=== PATIENT | female | born 1990 | race Caucasian/White ===

== ENCOUNTER 2019-10-12 10:56 | Emergency (ER) | payer OTHER ==
[~2019-10-12] VITALS: Ht 170.2 cm; Wt 88.5 kg
[2019-10-12] MEDS ORDERED: NORCO 5-325 TA1 EAC1 PO (12:46)
[2019-10-12] MEDS ORDERED: NABUMETONE 750750 M1 PO (12:46)
[2019-10-12 12:55] VITALS: BP 163/109
== END 2019-10-12 12:56 | disposition home or self-care (01) ==
LOC: M.ERS 10:56
DX: M25.512 Pain in left shoulder (principal); Z90.710 Acquired absence of both cervix and uterus; Z88.1 Allergy status to other antibiotic agents; Z88.6 Allergy status to analgesic agent